=== PATIENT | female | born 1955 | race Asian ===

== ENCOUNTER 2020-03-18 13:48 | Emergency (ER) | payer MEDICARE, MEDICAID ==
[~2020-03-18] VITALS: Ht 154.9 cm; Wt 67.6 kg
[2020-03-18 14:00] VITALS: BP 130/75
--- NOTE | 2020-03-18 14:00 | NUR ---
ED Nurse Note: pt walked into ED from home accompanied by sister due to s/p fall resulting in left wrist deformity and pain 01/03, pt denies head trauma. Pt is alert and oriented x4, breathing even and unlabored, vital signs stable as documented.
[2020-03-18] MEDS ORDERED: Ketorolac 30mg Inj IM ONE (14:15)
--- NOTE | 2020-03-18 14:15 | NUR ---
ED Nurse Note: technician chemical cleaning at bedside performing hand xray.
--- NOTE | 2020-03-18 14:45 | NUR ---
ED Nurse Note: EMT at bedside placing splint on wrist.
--- NOTE | 2020-03-18 16:14 | Diagnostic Imaging Report ---
Indication: Trauma, pain Technique: 3 views left hand Comparison: none Findings: There is a comminuted overriding anteriorly displaced and angulated intra-articular fracture of the distal radius. There is an associated fracture of the ulnar styloid. No carpal fracture. No hand fracture. The joint spaces are preserved. Impression: Positive for distal radial and ulnar fractures.
--- NOTE | 2020-03-18 16:15 | Diagnostic Imaging Report ---
Clinical Indication:Pain, trauma Technique: 3 views of the left wrist Comparison: None Findings: There is an anteriorly angulated comminuted overriding fracture of the distal radius. There is an associated fracture of the ulnar styloid. Osseous fragments adjacent to the medial aspect of the proximal carpal row may have come off of the ulnar styloid. No carpal fracture demonstrated. A tiny cyst is seen in the lunate. Impression: Positive for distal radial and ulnar fractures
--- NOTE | 2020-03-18 16:23 | Emergency Room Report ---
History of Present Illness General Chief Complaint: Upper Extremity Injury Source: Patient Present Illness HPI 65-year-old female with history of hypothyroidism, anxiety, hypertension currently taking medication here with her sister who is her caregiver due to a fall and hurting her left wrist earlier this morning. Obvious deformity noted. Patient denies any tingling numbness. Is neurovascularly intact. Is capable of moving all fingers. Has full strength in the affected side. Has not taken medication for symptom relief. Rates the pain 7 out of 10 without radiation. Denies all other injuries, chest pain, shortness of breath, and other associate symptoms. Patient is currently not taking any blood thinners. Denies feeling dizzy prior to fall. Reports that she landed on her left wrist. Allergies: Coded Allergies: No Known Allergies (Unverified , 03/18/20) COVID-19 Screening Contact w/high risk pt: No Experienced COVID-19 symptoms?: No COVID-19 Testing performed CLIENT SERVICE PROFESSIONAL: No Patient History Past Medical History: see triage record Past Surgical History: none Pertinent Family History: none Now: No Immunizations: UTD Reviewed Nursing Documentation: PMH: Agreed; PSxH: Agreed Nursing Documentation-PMH Hx Hypertension: Yes Hx Diabetes: Yes History Of Psychiatric Problem: Yes - schizoeffective disorder Review of Systems All Other Systems: negative except mentioned in HPI Physical Exam Vital Signs Date Time Temp Pulse Resp B/P (MAP) Pulse Ox O2 Delivery O2 Flow Rate FiO2 03/18/20 13:52 97.2 98 18 135/80 (98) 95 Room Air Sp02 EP Interpretation: reviewed, normal General Appearance: alert, mild distress Head: normocephalic, atraumatic Eyes: bilateral eye normal inspection, bilateral eye PERRL ENT: hearing grossly normal, normal pharynx, no angioedema, normal voice Neck: full range of motion, supple/symm/no masses Respiratory: chest non-tender, lungs clear, normal breath sounds, speaking full sentences Cardiovascular #1: regular rate, rhythm, no edema Cardiovascular #2: 2+ radial (R), 2+ radial (L) Gastrointestinal: soft Genitourinary: no CVA tenderness Musculoskeletal: back normal, tender - Left distal ulna and radius with obvious deformity Neurologic: alert, motor strength/tone normal, oriented x3, sensory intact, responsive, speech normal Psychiatric: judgement/insight normal, memory normal, mood/affect normal, no suicidal/homicidal ideation Skin: no rash Lymphatic: no adenopathy Procedures Splinting Splinting : Consent: Verbal Location: Left wrist Hand-Made Type: plaster Splint: volar Pre-Proc Neuro Vasc Exam: normal Post-Proc Neuro Vasc Exam: normal Patient Tolerated: Well Complications: None Progress Arm sling applied Medical Decision Making PA Attestation All my diagnosis and treatment plans were reviewed ad discussed with my supervising physician Dr. Sampson Diagnostic Impression: Primary Impression: Displaced fracture of distal end of ulna Additional Impression: Distal radial fracture ER Course 65-year-old female with history of hypothyroidism, anxiety, hypertension currently taking medication here with her sister who is her caregiver due to a fall and hurting her left wrist earlier this morning. Obvious deformity noted. Patient denies any tingling numbness. Is neurovascularly intact. Is capable of moving all fingers. Has full strength in the affected side. Has not taken medication for symptom relief. Rates the pain 7 out of 10 without radiation. Denies all other injuries, chest pain, shortness of breath, and other associate symptoms. Patient is currently not taking any blood thinners. Denies feeling dizzy prior to fall. Reports that she landed on her left wrist. Ddx considered but are not limited to : Wrist sprain, wrist strain, wrist fracture Vital signs: are WNL, pt. is afebrile H&PE are most consistent with: Displaced fracture of distal end of ulna, distal radial fracture ORDERS: Wrist x-ray, hand x-ray, Tylenol 3, ibuprofen 800 ED INTERVENTIONS: Toradol, splint placement, reduction of the wrist was done by putting in position DISCHARGE: At this time pt. is stable for d/c to home. Will provide printed patient care instructions, and any necessary prescriptions. Care plan and follow up instructions have been discussed with the patient prior to discharge. Patient take medication as directed, follow-up with nurse orthopedic, if worsening symptoms return to the emergency room. The wrist was reduced using the fingertrap method and no further sedation reduction manually was needed Other X-Ray Diagnostic Results Other X-Ray Diagnostic Results #1: X-Ray ordered: Left wrist # of Views/Limited Vs Complete: 3 View Indication: Pain EP Interpretation: Yes PA Xray: Interpretation reviewed, by supervising MD, and agrees with findings. Interpretation: other - Displaced distal ulnar and radial fracture Impression: Other - Displaced distal ulnar and radial fracture Electronically Signed by: Fawn Velasco PA-C Other X-Ray Diagnostic Results #2: X-Ray ordered: Left hand # of Views/Limited Vs Complete: 3 View Indication: Pain EP Interpretation: Yes PA Xray: Interpretation reviewed, by supervising MD, and agrees with findings. Interpretation: other - Displaced left old ulnar and radial fracture Impression: Other - Displaced distal ulnar and radial fracture Electronically Signed by: Fawn Velasco PA-C Other X-Ray Diagnostic Results #3: X-Ray ordered: Postreduction left wrist # of Views/Limited Vs Complete: 3 View Indication: Pain EP Interpretation: Yes LIDIA Xray: Interpretation reviewed, by supervising MD, and agrees with findings. Interpretation: other - Reduced left wrist, distal ulnar radial fracture Impression: Other - Reduced left wrist, distal ulna and radial fracture Electronically Signed by: Fawn Velasco PA-C Last Vital Signs Date Time Temp Pulse Resp B/P (MAP) Pulse Ox O2 Delivery O2 Flow Rate FiO2 03/18/20 13:52 97.2 98 18 135/80 (98) 95 Room Air Disposition: HOME, SELF-CARE Condition: Stable Scripts Ibuprofen (Ibu) 800 Mg Tablet 800 MG PO TID, #30 TAB Prov: Fawn Canada 03/18/20 Acetaminophen With Codeine (T#3) (TYLENOL #3 TAB*) Y Tab 1 TAB ORAL Q8HR PRN for For Pain for 4 Days, #12 TAB Prov: Fawn Canada 03/18/20 Referrals: NON PHYSICIAN (PCP) Patient Instructions: Wrist Fracture With Rehab[facility] Additional Instructions: Take medication as directed, follow-up with specialist for further evaluation, keep the splint on, if worsening symptoms return to the emergency room Fawn Canada Mar 18, 2020 16:23
[2020-03-18] MEDS ORDERED: IBU800 MG PO (16:27)
[2020-03-18] MEDS ORDERED: ACETAMINOPHEN-1 EAC1 ORAL (16:27)
[2020-03-18 16:33] VITALS: BP 128/87
--- NOTE | 2020-03-18 16:33 | NUR ---
ER DISCHARGE NOTE: Patient is cleared to be discharged per PA, pt is aox4, on room air, with stable vital signs. pt was given dc and prescription instructions, pt was able to verbalize understanding, pt id band and iv site removed without complications. pt is able to ambulate with steady gait. pt took all belongings and left with her family member.
--- NOTE | 2020-03-18 17:05 | Diagnostic Imaging Report ---
Indication: Left wrist pain, status post reduction and splinting Technique: 2 views of the left wrist Comparison: 2 hours earlier Findings: Considerable improvement in bony alignment of previously demonstrated displaced left distal radial fracture. Overlying splint obscures bony detail. Impression: Improved alignment of previously demonstrated left distal radial fracture, post closed reduction and splinting
== END 2020-03-18 16:35 | disposition home or self-care (01) ==
LOC: EMR 14:05
DX: S52.502A Unspecified fracture of the lower end of left radius, initial encounter for closed fracture (principal); S52.612A Displaced fracture of left ulna styloid process, initial encounter for closed fracture; M85.642 Other cyst of bone, left hand; W19.XXXA Unspecified fall, initial encounter; Y92.9 Unspecified place or not applicable; E03.9 Hypothyroidism, unspecified; F41.9 Anxiety disorder, unspecified; I10 Essential (primary) hypertension; F25.9 Schizoaffective disorder, unspecified
CPT/HCPCS: 29125; 73100; 73110; 73130; 96372; 99284; J1885